=== PATIENT | female | born 1995 ===

== ENCOUNTER 2017-04-16 12:01 | Emergency (ER) | payer MEDICAID ==
[2017-04-16 12:39] VITALS: BP 105/62; PULSE 62; RESP 19; TEMP 98.9; O2SAT 99
--- NOTE | 2017-04-16 12:56 | C.PDOC ---
History Of Present Illness 21 year old female presents to the ED for evaluation of a possible abscess for the past 2 days. Patient states area feels painful skin mass in her right perianal/buttock area. Patient denies discharge, fever, chills, nausea, vomit, diarrhea. Patient is . CONCERN FOR POSSIBLE ABSCESS X 2 DAYS. PS FEELS PAINFUL SKIN MASS R PERIANAL/ BUTTOCK AREA. NO DC. NO FEVER. +PREG EXAM NAD SKIN +SUBCUT NODULE < PEA SIZE CM R BUTTOCK MOBILE W LOCAL TEND. NO FOCAL FLUCTUANCE. NO ERYTHEMA, INTACT REMAINDE RNEG MDM NO INDICATION FOR I&D @ THIS TIME. ABX, SITZ BATH Time Seen by Provider: 04/16/17 12:38 Chief Complaint (Nursing): Abnormal Skin Integrity History Per: Patient History/Exam Limitations: no limitations Onset/Duration Of Symptoms: Days Current Symptoms Are (Timing): Still Present Location Of Injury: Right: Buttock, Posterior: Buttock Quality Of Symptoms: Painful Recent travel outside of the [place]: No Additional History Per: Patient Past Medical History Reviewed: Historical Data, Nursing Documentation, Vital Signs Vital Signs: Last Vital Signs Temp 98.9 F 04/16/17 12:31 Pulse 62 04/16/17 12:31 Resp 19 04/16/17 12:31 BP 105/62 04/16/17 12:31 Pulse Ox 99 04/16/17 12:56 - Medical History PMH: No Chronic Diseases Surgical History: No Surg Hx Family History: States: Unknown Family Hx - Social History Hx Tobacco Use: No Hx Alcohol Use: No Hx Substance Use: No - Immunization History Hx Tetanus Toxoid Vaccination: No Hx Influenza Vaccination: No Hx Pneumococcal Vaccination: No Review Of Systems Constitutional: Negative for: Fever, Chills Cardiovascular: Negative for: Chest Pain Respiratory: Negative for: Cough, Shortness of Breath Gastrointestinal: Negative for: Nausea, Vomiting, Abdominal Pain Musculoskeletal: Positive for: Back Pain (buttock) Skin: Negative for: Rash Neurological: Negative for: Weakness, Numbness, Headache Physical Exam - Physical Exam Appears: Non-toxic, No Acute Distress Skin: Normal Color, Warm, Dry, Other (subcutaneous nodule < pea size cm on right buttock, mobile with local tednerness, no focal fluctuance, no erythema) Head: Atraumatic, Normacephalic Nose: No Discharge, No Deformity Extremity: Normal ROM, No Pedal Edema, No Calf Tenderness, No Deformity, No Swelling Neurological/Psych: Oriented x3, Normal Speech, Normal Cognition Gait: Steady ED Course And Treatment O2 Sat by Pulse Oximetry: 99 (On RA) Pulse Ox Interpretation: Normal Medical Decision Making Medical Decision Making: Impression : No indication for I&D at this time, antibiotics and sitz bath. Disposition Counseled Patient/Family Regarding: Diagnosis, Need For Followup, Rx Given - Disposition Referrals: YOUR,PMD [Other] Disposition: HOME/ ROUTINE Disposition Time: 12:55 Condition: GOOD Prescriptions: Cephalexin [cephalexin] 500 mg PO Q6 #28 cap Instructions: Abscess (ED) Forms: [employer] (Japanese) - Clinical Impression Clinical Impression: Abscess - Scribe Statement The provider has reviewed the documentation as recorded by the Scribe Tha Chen All medical record entries made by the Scribe were at my direction and personally dictated by me. I have reviewed the chart and agree that the record accurately reflects my personal performance of the history, physical exam, medical decision making, and the department course for this patient. I have also personally directed, reviewed, and agree with the discharge instructions and disposition.
== END 2017-04-16 13:02 | disposition home or self-care (01) ==
LOC: C.ER 12:01
DX: L02.31 Cutaneous abscess of buttock (principal)

== ENCOUNTER 2017-10-24 06:10 | Inpatient (IN) | payer MEDICAID, OTHER ==
[2017-10-24 06:50] VITALS: BMI 28.5
[2017-10-24 07:56] LABS: BASO % 0.3 % (0.0-2.0); EOS # 0.1 K/uL (0.0-0.7); EOS % 0.6 % (0.0-4.0); HEMOGLOBIN 11.6 g/dL (11.0-16.0); LYMPH # 2.3 K/uL (1.0-4.3); LYMPH % 17.7 % (20.0-40.0); MEAN CELL VOLUME 93.1 fL (81.0-99.0); MEAN CORPUSCULAR HEMOGLOBIN 31.7 pg (27.0-31.0); MEAN CORPUSCULAR HGB CONC 34.1 g/dL (33.0-37.0); MONO # 1.1 K/uL (0.0-0.8); MONO % 8.6 % (0.0-10.0); NEUT # 9.4 K/uL (1.8-7.0); NEUT % 72.8 % (50.0-75.0); RBC 3.64 Mil/uL (3.80-5.20); RED CELL DISTRIBUTION WIDTH 13.5 % (11.5-14.5); WHITE BLOOD COUNT 12.9 K/uL (4.8-10.8)
[2017-10-24 08:35] LABS: SQUAMOUS EPITHIAL 10 /hpf (0-5); URINE BACTERIA RARE (<OCC); URINE BILIRUBIN NEGATIVE (NEGATIVE); URINE BLOOD NEGATIVE (NEGATIVE); URINE CLARITY Hazy (Clear); URINE COLOR Yellow (YELLOW); URINE GLUCOSE (UA) NORMAL (Normal); URINE LEUKOCYTE ESTERASE 3+ Leu/uL (Negative); URINE PROTEIN NEGATIVE (NEGATIVE); URINE UROBILINOGEN NORMAL mg/dL (0.2-1.0)
[2017-10-24] MEDS ORDERED: Oxytocin 30 UNIT 30 UNITS/500 ML BAG IV ONE ×3 (10:53→23:05)
[2017-10-24] MEDS ORDERED: Dextrose 5%/Lactated Ringer's 1,000 ML IV SCH (15:15)
[2017-10-24] MEDS ORDERED: Bupivacaine HCl/FentaNYL Cit 100 ML EPI ONE (16:05)
[2017-10-24] MEDS: Lactated Ringer's 1,000 ML IV SCH (21:30)
[2017-10-24] MEDS ORDERED: Sodium Citrate/Citric Acid 15 ml Sol PO ONE (23:03)
[2017-10-24] MEDS ORDERED: Lactated Ringer's 1,000 ML IV ONE (23:03)
[2017-10-24] MEDS ORDERED: cefOXitin IV 2 gm in Saline 2 GM/50 ML BAG IVPB ONE (23:07)
[2017-10-24] MEDS ORDERED: Oxytocin 20 units in LR 2,000 ML IV ONE (23:13)
[2017-10-24] MEDS ORDERED: Lidocaine 2% MPF (5 ml) Inj ONE (23:15)
[2017-10-25] MEDS ORDERED: Midazolam 2 MG/2 ML VIAL ONE
[2017-10-25] MEDS ORDERED: HYDROmorphone 0.5 mg/0.5 ml ISec IVP PRN (00:32)
[2017-10-25] MEDS ORDERED: DiphenhydrAMINE 50 mg/ml Inj IVP PRN (00:33)
[2017-10-25] MEDS ORDERED: Acetaminophen IV 1,000 MG in Premixed IV 1 EA IV PRN (00:35)
[2017-10-25] MEDS: Lactated Ringer's 1,000 ML IV SCH (06:18)
[2017-10-25 08:17] LABS: MEAN CELL VOLUME 93.2 fL (81.0-99.0); MEAN CORPUSCULAR HEMOGLOBIN 31.8 pg (27.0-31.0); MEAN CORPUSCULAR HGB CONC 34.1 g/dL (33.0-37.0); MEAN PLATELET VOLUME 9.1 fL (7.2-11.7); RBC 3.47 Mil/uL (3.80-5.20); RED CELL DISTRIBUTION WIDTH 13.8 % (11.5-14.5)
[2017-10-25 08:21] LABS: WHITE BLOOD COUNT 20.2 K/uL (4.8-10.8)
[2017-10-25] MEDS: Prenatal Multivit/Folic Acid/Iron Tab PO SCH (09:33)
[2017-10-25] MEDS: Simethicone 80 mg Chewtab PO SCH ×3 (09:33→18:31)
[2017-10-25] MEDS: Oxycodone/Acetaminophen 5/325 mg Tab PO PRN ×2 (12:26→18:31)
[2017-10-26] MEDS: Oxycodone/Acetaminophen 5/325 mg Tab PO PRN ×5 (00:07→22:38)
[2017-10-26 08:55] VITALS: RESP 18
[2017-10-26] MEDS: Prenatal Multivit/Folic Acid/Iron Tab PO SCH (10:11)
[2017-10-26] MEDS: Simethicone 80 mg Chewtab PO SCH ×3 (10:11→18:23)
[2017-10-27] MEDS: Simethicone 80 mg Chewtab PO SCH ×3 (03:17→10:20)
--- NOTE | 2017-10-27 07:55 | OBPPN ---
Datetime: 10/27/2017 07:46 PP Pain Prov: Within normal limits PP Nausea Prov: Denies PP Flatus Prov: Yes PP BM Prov: Yes PP Heart Prov: Normal PP Lungs Prov: Normal PP Abdomen/Uterus Prov: Normal PP Lochia Prov: Normal PP C/S Incision Prov: Normal PP Impression Prov: Normal progression PP Plan Prov: Continue present management PP Progress Note Prov: pt was seen at bed side, pain under control,no n.v, tolerating regular diet, passing flatus, having BM, locia improving, ambulating without difficulty. Incision site dry, clean a nd healing well. pod#3 s/p c/s cont pain ma obnt post op care encourage ambulation Can shower D/c today Nothing per vagina 6 wks Cont vitamins no heavly lifting 6 weeks f/u OB 2 weeks Pain medication only as needed Vital Signs Provider PP: Reviewed; Within Normal Limits
--- NOTE | 2017-10-27 07:59 | CP.PCM.DIS ---
Provider - Provider Date of Admission: 10/24/17 07:17 Attending physician: Olvin Griffin MD Consults: Anesthesia Time Spent in preparation of Discharge (in minutes): 45 Diagnosis - Discharge Diagnosis (1) Encounter for induction of labor Status: Acute Hospital Course - Lab Results Lab Results: Most Recent Lab Values WBC 20.2 K/uL (4.8-10.8) H D 10/25/17 08:06 RBC 3.47 Mil/uL (3.80-5.20) L 10/25/17 08:06 Hgb 11.0 g/dL (11.0-16.0) 10/25/17 08:06 Hct 32.4 % (34.0-47.0) L 10/25/17 08:06 MCV 93.2 fL (81.0-99.0) 10/25/17 08:06 MCH 31.8 pg (27.0-31.0) H 10/25/17 08:06 MCHC 34.1 g/dL (33.0-37.0) 10/25/17 08:06 RDW 13.8 % (11.5-14.5) 10/25/17 08:06 Plt Count 201 K/uL (130-400) 10/25/17 08:06 MPV 9.1 fL (7.2-11.7) 10/25/17 08:06 Neut % (Auto) 72.8 % (50.0-75.0) 10/24/17 07:48 Lymph % (Auto) 17.7 % (20.0-40.0) L 10/24/17 07:48 [place] % (Auto) 8.6 % (0.0-10.0) 10/24/17 07:48 Eos % (Auto) 0.6 % (0.0-4.0) 10/24/17 07:48 Baso % (Auto) 0.3 % (0.0-2.0) 10/24/17 07:48 Neut # (Auto) 9.4 K/uL (1.8-7.0) H 10/24/17 07:48 Lymph # (Auto) 2.3 K/uL (1.0-4.3) 10/24/17 07:48 [place] # (Auto) 1.1 K/uL (0.0-0.8) H 10/24/17 07:48 Eos # (Auto) 0.1 K/uL (0.0-0.7) 10/24/17 07:48 Baso # (Auto) 0.0 K/uL (0.0-0.2) 10/24/17 07:48 Differential Comment 10/25/17 08:06 Urine Color Yellow (YELLOW) 10/24/17 07:48 Urine Clarity Hazy (Clear) 10/24/17 07:48 Urine pH 6.0 (5.0-8.0) 10/24/17 07:48 Ur Specific [place] 1.014 (1.003-1.030) 10/24/17 07:48 Urine Protein Negative mg/dL (NEGATIVE) 10/24/17 07:48 Urine Glucose (UA) Normal mg/dL (Normal) 10/24/17 07:48 Urine Ketones Negative mg/dL (NEGATIVE) 10/24/17 07:48 Urine Blood Negative (NEGATIVE) 10/24/17 07:48 Urine Nitrate Negative (NEGATIVE) 10/24/17 07:48 Urine Bilirubin Negative (NEGATIVE) 10/24/17 07:48 Urine Urobilinogen Normal mg/dL (0.2-1.0) 10/24/17 07:48 Ur Leukocyte Esterase 3+ Faustino/uL (Negative) H 10/24/17 07:48 Urine WBC (Auto) 15 /hpf (0-5) H 10/24/17 07:48 Urine RBC (Auto) 1 /hpf (0-3) 10/24/17 07:48 Ur Squamous Epith Cells 10 /hpf (0-5) H 10/24/17 07:48 Urine Bacteria Rare (<OCC) 10/24/17 07:48 RPR Nonreactive (NONREACTIVE) 10/24/17 07:48 HIV 1&2 Antibody Screen Negative (NEGATIVE) 10/24/17 07:48 Blood Type O NEGATIVE 10/24/17 07:49 Antibody Screen Positive 10/24/17 07:49 Antibody Identification ANTI D DUE TO RhoGAM 10/24/17 07:49 - Hospital Course Hospital Course: Pt is 22yo F presented on 10/24 to L&D for an induction of labor due to gestational HTN/pre-eclmapsia or eclampsia. Estimated gestational age was 38 weeks. pt IOL for PIH and c/s was performed due to non-reassuring tracing same day without associated complications. Pt was seen the next day, she received percocet for pain and stated that the pain was well managed with current pain medication regimen. Her fundal height was noted to be 2 finger breaths above the umbilicus and firm. She had a moderate amount of locia. Incision was noted to be dry and intact. She had improving locia on the next day with improving pain. Was having gas pain and passing flatus but no BM. Today she is passing flatus and having BMs, locia is improving and she is ambulating without difficulty. She is tolerating her diet and does not complain of fever, chills, nausea, vomiting, abd pain, calf pain or swelling. Pain is well managed on pain regimen and will give prescription for pain medication and instructions to f/u in 2 weeks. Pt is in agreement with d/c plan is ready to go home today. Discharge Exam - Head Exam Head Exam: ATRAUMATIC, NORMOCEPHALIC - Eye Exam Eye Exam: EOMI, Normal appearance Pupil Exam: NORMAL ACCOMODATION, PERRL - ENT Exam ENT Exam: Mucous Membranes Dry, Mucous Membranes Moist - Neck Exam Neck exam: Full Rom - Respiratory Exam Respiratory Exam: NORMAL BREATHING PATTERN. absent: Accessory Muscle Use, Decreased Breath Sounds, Rales, Rhonchi, Wheezes, Respiratory Distress - Cardiovascular Exam Cardiovascular Exam: REGULAR RHYTHM, +S1, +S2. absent: Gallop, Rubs - GI/Abdominal Exam GI & Abdominal Exam: Normal Bowel Sounds. absent: Distended, Firm, Guarding Additional comments: Linear laceration s/p c/s POD 3 noted in lower abdomen. Incision clean, dry, intact. No erythema, purulence or drainage noted from incision site. Non-tender to touch. - Extremities Exam Extremities exam: pedal edema Additional comments: no calf pain. ROM wnl - Neurological Exam Neurological exam: Alert, CN II-XII Intact, Oriented x3 - Psychiatric Exam Psychiatric exam: Normal Affect, Normal Mood - Skin Skin Exam: Dry, Intact, Normal Color, Warm Additional comments: except where noted above Discharge Plan - Follow Up Plan Condition: GOOD Disposition: HOME/ ROUTINE Patient education suggested?: Yes Instructions: Avoiding Infections in , Activity During Additional Instructions: - Follow up OB in 2 weeks for post op care - Continue pain medication only as needed for moderate (4-7) to severe (8-10) pain and taken as directed on prescription bottle - Can shower, let water run over incision, pat dry. - Do not put cream on incision leave to air to dry. - Nothing per vagina for 6 weeks - No heavy lifting for 6 weeks - Continue vitamins - Encourage ambulation to help recovery - High fiber diet - Increase water intake Clinical Quality Measures - Date & Time of Discharge Summary Date of Discharge Summary: 10/27/17 Time of Discharge Summary: 08:54
[2017-10-27] MEDS: Oxycodone/Acetaminophen 5/325 mg Tab PO PRN (08:22)
[2017-10-27] MEDS: Prenatal Multivit/Folic Acid/Iron Tab PO SCH (10:20)
[2017-10-27 11:31] VITALS: BP 124/79; PULSE 100; O2SAT 98
[2017-10-27 19:56] VITALS: TEMP 99
--- NOTE | 2017-10-28 08:56 | OP ---
Copied To: Olvin Griffin MD Attending MD: Olvin Griffin MD PROCEDURE DATE: 10/24/2017 PREOPERATIVE DIAGNOSIS: A 25-year-old 1, para 0 at 38 plus weeks with nonreassuring heart tracing, arrest of dilatation. POSTOPERATIVE DIAGNOSIS: A 25-year-old 1, para 0 at 38 plus weeks with nonreassuring heart tracing, arrest of dilatation. SURGEON: Olvin Griffin MD CRUSHER W[employer] GROUND MICA: Dr. Madden, who was present throughout the surgery for exposure, retraction, pushing at the time of delivery. COMPLICATIONS: None. ANESTHESIOLOGIST: Dr. Hutchison. ANESTHESIA: Epidural. PROCEDURE PERFORMED: Primary section. DESCRIPTION OF PROCEDURE: After informed consent was obtained, the patient was brought to the operating room and placed on table, where spinal anesthesia was given. Once the anesthesia was given, the patient was prepped and draped in normal sterile fashion. About 2 cm above the pubic bone, a skin incision was made with a knife, the subcutaneous cut with a Bovie. The fascia was then excised on both the sides using curved Jacob scissors. The fascia was first from the site of the umbilicus and other site of the pubic bone, rectus muscle was . Peritoneum was incised and we went into the abdominal cavity. Bladder blade was placed. Bladder flap was created. Lower uterine segment incision was made with a knife, it was extended on both sides using curved Jacob scissors. Baby delivered in ELIZABETH position. Cord was clamped and cut. Baby was handed to the awaiting product applications scientist. Cord gas was taken. Cord blood was taken. Placenta delivered manually and sent to Pathology. Uterus was exteriorized and cleared of all clots and debris. Uterus was second layer was closed using the same stitch. Uterus was boggy, extra Pitocin and Hemabate was given. After that, the gutters were cleared of all the clots and debris after that. The peritoneum was closed using 2-0 Vicryl in running interlocking fashion. The muscle was closed using 2-0 Vicryl in running interlocking fashion. Fascia was closed using #1 Vicryl in running interlocking fashion. Subcutaneous tissue was closed with 0 Vicryl in interrupted fashion. Skin was closed using 3-0 Monocryl straight needle. Patient tolerated the procedure well. Lap, sponge, and instrument counts were correct x2. Olvin Griffin MD
== END 2017-10-27 13:50 | disposition home or self-care (01) | DRG 370 ==
LOC: C.EROB 06:10 → C.4D 07:17 → C.4M 10-25 02:45
PROVIDERS: ADMIT Obstetrics & Gynecology; ATTEND Obstetrics & Gynecology
PROC: 10D00Z1 Extraction of Products of Conception, Low, Open Approach (ICD-10-PCS; principal; 2017-10-24)
DX: O76 Abnormality in fetal heart rate and rhythm complicating labor and delivery (principal); O62.1 Secondary uterine inertia; O15.1 Eclampsia complicating labor; O13.4 Gestational [pregnancy-induced] hypertension without significant proteinuria, complicating childbirth; Z3A.38 38 weeks gestation of pregnancy; Z37.0 Single live birth